=== PATIENT | male | born 1950 | race Hispanic/Latino ===

== ENCOUNTER 2023-12-27 13:55 | Inpatient (IN) | payer OTHER ==
[2023-12-27] MEDS ORDERED: NA CHLORIDE 0.9% 1,000 ML ONE (14:35)
--- NOTE | 2023-12-27 15:07 | ER ---
Nurse's Notes [facility] Name: Anupam Gould Age: 73 yrs Sex: Male : 1950 Arrival Date: 12/27/2023 Time: 13:55 Bed 19 Private MD: Diagnosis: Persistent atrial fibrillation-with RVR Presentation: 12/26 14:03 Chief complaint: Patient states: was going to have a colonoscopy today and they ko1 wouldn't do it, sent him here for afib, has a hx of afib for a long time. Coronavirus screen: At this time, the client does not indicate any symptoms associated with coronavirus-19. Ebola Screen: No symptoms or risks identified at this time. Initial Sepsis Screen: Does the patient meet any 2 criteria? No. Patient's initial sepsis screen is negative. Does the patient have a suspected source of infection? No. Patient's initial sepsis screen is negative. Risk Assessment: Do you want to hurt yourself or someone else? Patient reports no desire to harm self or others. Onset of symptoms was December 27, 2023. 14:03 Method Of Arrival: Ambulatory ko1 14:03 Acuity: ROSEMARIE 3 ko1 Triage Assessment: 14:07 General: Appears in no apparent distress. Behavior is calm, cooperative, appropriate ko1 for age. Pain: Denies pain. Historical: - Allergies: 14:07 No Known Allergies; ko1 - Home Meds: 14:07 Unable to obtain [Active]; ko1 - PMHx: 14:07 Atrial fibrillation; ko1 - PSHx: 14:07 None; ko1 - Immunization history:: Adult Immunizations up to date. - Infectious Disease History:: Denies. - Social history:: Smoking status: Patient denies any tobacco usage or history of. - Family history:: not pertinent. Screenin:03 [facility] ED Fall Risk Assessment (Adult) History of falling in the last 3 months, ap3 including since admission No falls in past 3 months (0 pts) Confusion or Disorientation No (0 pts) Intoxicated or Sedated No (0 pts) Impaired Gait No (0 pts) Mobility Assist Device Used No (0 pt) Altered Elimination No (0 pt) Score/Fall Risk Level 0 - 2 = Low Risk Oriented to surroundings, Maintained a safe environment, Educated pt \T\ family on fall prevention, incl call for assistance when getting out of bed, Assessed \T\ reinforced patient's understanding of fall precautions. Abuse screen: Denies threats or abuse. Denies injuries from another. Nutritional screening: No deficits noted. Tuberculosis screening: No symptoms or risk factors identified. Assessment: 15:04 General: Appears in no apparent distress. Behavior is calm, cooperative. Pain: Denies ap3 pain. Neuro: Level of Consciousness is awake, alert, obeys commands, Oriented to person, place, time, situation, [place] are equal bilaterally Moves all extremities. Full function Gait is steady, Speech is normal, Facial symmetry appears normal. Cardiovascular: Denies chest pain, lightheadedness, nausea, palpitations, shortness of breath, syncope, Capillary refill < 3 seconds Patient's skin is warm and dry. Rhythm is atrial fibrillation with rapid ventricular response With PVC's. Respiratory: Airway is patent Respiratory effort is even, unlabored, Respiratory pattern is regular, symmetrical, Breath sounds are clear bilaterally. GI: No signs and/or symptoms were reported involving the gastrointestinal system. : No signs and/or symptoms were reported regarding the genitourinary system. EENT: No signs and/or symptoms were reported regarding the EENT system. Derm: No signs and/or symptoms reported regarding the dermatologic system. Musculoskeletal: No signs and/or symptoms reported regarding the musculoskeletal system. 16:15 Reassessment: No changes from previously documented assessment. Patient and/or family ap3 updated on plan of care and expected duration. Pain level reassessed. Patient is alert, oriented x 3, equal unlabored respirations, skin warm/dry/pink. Patient denies pain at this time. 17:12 Reassessment: No changes from previously documented assessment. Patient and/or family ap3 updated on plan of care and expected duration. Pain level reassessed. Patient is alert, oriented x 3, equal unlabored respirations, skin warm/dry/pink. Pt denies any needs at this time. Family at bedside. Will continue to monitor Patient denies pain at this time. 17:42 Reassessment: No changes from previously documented assessment. Patient and/or family ap3 updated on plan of care and expected duration. Pain level reassessed. Patient is alert, oriented x 3, equal unlabored respirations, skin warm/dry/pink. Patient denies pain at this time. Vital Signs: 14:03 BP 153 / 84; Pulse 93; Resp 18; Temp 97.4(O); Pulse Ox 100% on R/A; ko1 15:03 BP 133 / 77; Pulse 142; Resp 20; Pulse Ox 98% on R/A; ap3 15:40 BP 120 / 98; Pulse 115; Resp 20; Pulse Ox 99% on R/A; Weight 78.93 kg (M); ap3 16:00 BP 133 / 99; Pulse 111; Resp 20; Pulse Ox 100% on R/A; Pain 0/10; ap3 16:30 BP 134 / 82; Pulse 102; Resp 20; Pulse Ox 100% on R/A; ap3 17:00 BP 124 / 84; Pulse 107; Resp 20; Pulse Ox 99% on R/A; ap3 17:43 BP 133 / 90; Pulse 121; Resp 19; Temp 97.9(TE); Pulse Ox 100% on R/A; Pain 0/10; ap3 16:00 Pain Scale: Adult ap3 17:43 Pain Scale: Adult ap3 Vitals: 15:03 Cardiac Rhythm Assessment Irregular Atrial fibrillation W/rapid ventricular response ap3 W/PVC's. ED Course: 14:02 Patient arrived in ED. mg5 14:07 Triage completed. ko1 14:07 Arm band placed on right wrist. Patient placed in an exam room, on a stretcher, on ko1 lunchroom monitor, on pulse oximetry, Patient notified of wait time. 14:16 Cristopher Morel MD is Attending Physician. [facility] 14:31 Jayna Quiroga, RN is Primary Nurse. ap3 14:55 XRAY Chest (1 view) In Process Unspecified. EDMS 15:03 No provider procedures requiring assistance completed. EKG done, by ED staff, reviewed ap3 by Cristopher Morel MD. 15:06 Cheikh Montoya MD is Hospitalizing Provider. pia 15:06 Patient has correct armband on for positive identification. Placed in gown. Bed in low ap3 position. Call light in reach. Side rails up X 1. Adult w/ patient. Provided Education on: ED process, call garcia. Client placed on continuous cardiac and pulse oximetry monitoring. NIBP monitoring applied. monitoring analyst on. Door closed. Noise minimized. Moved to private room. Warm blanket given. 15:15 Initial lab(s) drawn, by me, sent to lab. Urine collected: clean catch specimen, clear. [email or web address] Inserted saline lock: 20 gauge in right antecubital area, using aseptic technique. Blood collected. 17:45 Patient admitted, IV remains in place. ap3 Administered Medications: 15:25 Drug: Aspirin PO Chewable Tablet 81 mg PO once Route: PO; ap3 17:40 Follow up: Response: No adverse reaction ap3 15:26 Drug: Metoprolol PO 50 mg PO once Route: PO; ap3 17:40 Follow up: Response: No adverse reaction ap3 15:29 Drug: Metoprolol IVP 5 mg IVP once; Hold for SBP <100 or HR <60. Route: IVP; Site: ap3 right antecubital; 17:41 Follow up: Response: No adverse reaction ap3 15:30 Drug: NS 0.9% IV 500 ml IV at bolus once Route: IV; Rate: bolus; Site: right ap3 antecubital; Delivery: Primary tubing; 17:41 Follow up: Response: No adverse reaction; IV Status: Infusion continued; IV Intake: ap3 500ml 15:54 Drug: Magnesium Sulfate IVPB 1 grams IVPB once over 1 hrs Route: IVPB; Infused Over: 1 ap3 hrs; Site: right antecubital; Delivery: Primary tubing; 17:39 Follow up: Response: No adverse reaction; IV Status: Completed infusion; IV Intake: ap3 100ml 15:55 Drug: Enoxaparin Sub-Q 1 mg/kg Sub-Q once Route: Sub-Q; Site: right upper abdomen; ap3 17:41 Follow up: Response: No adverse reaction ap3 15:55 Drug: Digoxin IVP 0.5 mg IVP once Route: IVP; Site: right antecubital; ap3 17:40 Follow up: Response: No adverse reaction ap3 15:55 Drug: Famotidine IVP 20 mg IVP once; dilute with 10 mL 0.9% NaCl; give over 2 minutes ap3 Route: IVP; Infused Over: 2 mins; Site: right antecubital; 17:40 Follow up: Response: No adverse reaction ap3 Medication: 15:03 VIS not applicable for this client. ap3 Intake: 17:39 IV: 100ml; Total: 100ml. ap3 17:41 IV: 500ml; Total: 600ml. ap3 Outcome: 15:07 Decision to Hospitalize by Provider. pia 18:35 Admitted to Med/surg accompanied by tech, via wheelchair, tl4 18:35 Condition: stable 18:35 Instructed on the need for admit, 18:35 Patient left the ED. tl4 Signatures: Dispatcher [employer] EDCristopher Matute MD MD cha Prokisch, Amanda RN RN ap3 Colette Sparrow RN RN ko1 Kristina Strange mg5 Michael Bradford RN RN tl4 Raghav Mcgraw [email or web address]
--- NOTE | 2023-12-27 15:07 | EDPHYS ---
Physician Documentation [facility] Name: Anupam Gould Age: 73 yrs Sex: Male : 1950 Arrival Date: 12/27/2023 Time: 13:55 Bed 19 Private MD: ED Physician Cristopher Morel HPI: 12/26 14:52 This 73 yrs old Male presents to ER via Ambulatory with complaints of pia Palpitations. 14:52 The patient presents with a history of irregular heart beat. Context: The symptoms pia occur with light activity. Onset: The symptoms/episode began/occurred just prior to arrival. Duration: The patient or guardian reports multiple episodes, that wax and wane. Modifying factors: The symptoms are aggravated by nothing. The symptoms are alleviated by nothing. Associated signs and symptoms: The patient has no apparent associated signs or symptoms. Severity of symptoms: At their worst the symptoms were mild in the emergency department the symptoms are unchanged. The patient has experienced similar episodes in the past, multiple times. Historical: - Allergies: 14:07 No Known Allergies; ko1 - Home Meds: 14:07 Unable to obtain [Active]; ko1 - PMHx: 14:07 Atrial fibrillation; ko1 - PSHx: 14:07 None; ko1 - Immunization history:: Adult Immunizations up to date. - Infectious Disease History:: Denies. - Social history:: Smoking status: Patient denies any tobacco usage or history of. - Family history:: not pertinent. ROS: 14:56 Constitutional: Negative for fever, chills, and weight loss, Eyes: Negative for injury, pia pain, redness, and discharge, ENT: Negative for injury, pain, and discharge, Neck: Negative for injury, pain, and swelling, Respiratory: Negative for shortness of breath, cough, wheezing, and pleuritic chest pain, Abdomen/GI: Negative for abdominal pain, nausea, vomiting, diarrhea, and constipation, Back: Negative for injury and pain, : Negative for injury, bleeding, discharge, and swelling, MS/Extremity: Negative for injury and deformity, Skin: Negative for injury, rash, and discoloration, Neuro: Negative for headache, weakness, numbness, tingling, and seizure, Psych: Negative for depression, anxiety, suicide ideation, homicidal ideation, and hallucinations, Allergy/Immunology: Negative for hives, rash, and allergies, Endocrine: Negative for neck swelling, polydipsia, polyuria, polyphagia, and marked weight changes, 14:56 Cardiovascular: Positive for palpitations, Exam: 14:56 Constitutional: This is a well developed, well nourished patient who is awake, alert, pia and in no acute distress. Head/Face: Normocephalic, atraumatic. Eyes: Pupils equal round and reactive to light, extra-ocular motions intact. Lids and lashes normal. Conjunctiva and sclera are non-icteric and not injected. Cornea within normal limits. Periorbital areas with no swelling, redness, or edema. ENT: Nares patent. No nasal discharge, no septal abnormalities noted. Tympanic membranes are normal and external auditory canals are clear. Oropharynx with no redness, swelling, or masses, exudates, or evidence of obstruction, uvula midline. Mucous membranes moist. Neck: Trachea midline, no thyromegaly or masses palpated, and no cervical lymphadenopathy. Supple, full range of motion without nuchal rigidity, or vertebral point tenderness. No Meningismus. Chest/axilla: Normal chest wall appearance and motion. Nontender with no deformity. No lesions are appreciated. Cardiovascular: Regular rate and rhythm with a normal S1 and S2. No gallops, murmurs, or rubs. Normal PMI, no JVD. No pulse deficits. Respiratory: Lungs have equal breath sounds bilaterally, clear to auscultation and percussion. No rales, rhonchi or wheezes noted. No increased work of breathing, no retractions or nasal flaring. Abdomen/GI: Soft, non-tender, with normal bowel sounds. No distension or tympany. No guarding or rebound. No evidence of tenderness throughout. Back: No spinal tenderness. No costovertebral tenderness. Full range of motion. Male : Normal genitalia with no discharge or lesions. Skin: Warm, dry with normal turgor. Normal color with no rashes, no lesions, and no evidence of cellulitis. MS/ Extremity: Pulses equal, no cyanosis. Neurovascular intact. Full, normal range of motion. Neuro: Awake and alert, GCS 15, oriented to person, place, time, and situation. Cranial nerves II-XII grossly intact. Motor strength 5/5 in all extremities. Sensory grossly intact. Cerebellar exam normal. Normal gait. Psych: Awake, alert, with orientation to person, place and time. Behavior, mood, and affect are within normal limits. 15:09 ECG was reviewed by the Attending Physician. [facility] Vital Signs: 14:03 BP 153 / 84; Pulse 93; Resp 18; Temp 97.4(O); Pulse Ox 100% on R/A; ko1 15:03 BP 133 / 77; Pulse 142; Resp 20; Pulse Ox 98% on R/A; ap3 15:40 BP 120 / 98; Pulse 115; Resp 20; Pulse Ox 99% on R/A; Weight 78.93 kg (M); ap3 16:00 BP 133 / 99; Pulse 111; Resp 20; Pulse Ox 100% on R/A; Pain 0/10; ap3 16:30 BP 134 / 82; Pulse 102; Resp 20; Pulse Ox 100% on R/A; ap3 17:00 BP 124 / 84; Pulse 107; Resp 20; Pulse Ox 99% on R/A; ap3 17:43 BP 133 / 90; Pulse 121; Resp 19; Temp 97.9(TE); Pulse Ox 100% on R/A; Pain 0/10; ap3 16:00 Pain Scale: Adult ap3 17:43 Pain Scale: Adult ap3 MDM: 14:16 Patient medically screened. pia 14:56 MICKY Risk Score: 1 - Patient's age is greater or equal to 65, 1 - 3 or more CAD risk pia factors, [Family HX] Total Score = 2. Differential diagnosis: arrythmia, dehydration, stress disorder. Data reviewed: vital signs, nurses notes, lab test result(s), EKG, radiologic studies, plain films. Consideration of Admission/Observation Escalation of care including admission/observation considered. I considered the following discharge prescriptions or medication management in the emergency department Medications were administered in the Emergency Department. See MAR. Independent interpretation of the following test(s) in the Emergency Department EKG: See my EKG interpretation above. Test considered but Not performed: Ultrasound no 2 d echo. 12/26 14:18 Order name: Basic Metabolic Panel; Complete Time: 15:49 [facility] 12/26 14:18 Order name: CBC with Diff; Complete Time: 15:46 [facility] 12/26 14:18 Order name: LFT's; Complete Time: 15:49 12/26 14:18 Order name: Magnesium; Complete Time: 15:49 12/26 14:18 Order name: NT PRO-BNP; Complete Time: 15:49 12/26 14:18 Order name: PT-INR; Complete Time: 15:46 12/26 14:18 Order name: Troponin HS; Complete Time: 15:49 12/26 14:18 Order name: TSH; Complete Time: 15:49 12/26 14:18 Order name: Urinalysis w/ reflexes; Complete Time: 15:46 12/26 14:18 Order name: Lipase; Complete Time: 15:49 12/26 17:02 Order name: Thyroid Stimulating Hormone [facility] 12/26 17:02 Order name: Urinalysis w/ reflexes [facility] 12/26 17:02 Order name: CBC with Automated Diff [facility] 12/26 17:02 Order name: CBC with Automated Diff [facility] 12/26 17:02 Order name: Comprehensive Metabolic Panel [facility] 12/26 17:02 Order name: Comprehensive Metabolic Panel [facility] 12/26 17:02 Order name: Lipid Profile [facility] 12/26 17:02 Order name: Lipid Profile [facility] 12/26 17:02 Order name: Magnesium [facility] 12/26 17:02 Order name: Magnesium [facility] 12/26 17:02 Order name: Phosphorus [facility] 12/26 17:02 Order name: Phosphorus [facility] 12/26 17:02 Order name: Troponin High Sensitivity [facility] 12/26 17:02 Order name: Troponin High Sensitivity [facility] 12/26 17:02 Order name: Troponin High Sensitivity [facility] 12/26 14:18 Order name: XRAY Chest (1 view); Complete Time: 15:46 12/26 18:07 Order name: Echo with Doppler [facility] 12/26 14:18 Order name: EKG; Complete Time: 14:18 12/26 17:02 Order name: CONS Physician Consult [facility] 12/26 14:18 Order name: Cardiac monitoring; Complete Time: 15:02 12/26 14:18 Order name: EKG - Nurse/Tech; Complete Time: 15:02 12/26 14:18 Order name: IV Saline Lock; Complete Time: 15:15 12/26 14:18 Order name: Labs collected and sent; Complete Time: 15:15 12/26 14:18 Order name: O2 Per Protocol; Complete Time: 15:02 pia 12/26 14:18 Order name: O2 Sat Monitoring; Complete Time: 15: [facility] EC:09 Rate is 118 beats/min. Rhythm is irregularly irregular. QRS [place] is Normal. SC interval pia is normal. QRS interval is normal. QT interval is normal. No Q waves. T waves are Normal. No ST changes noted. Clinical impression: Atrial Fibrillation and No evidence of ischemia. Interpreted by me. Reviewed by me. Administered Medications: 15:25 Drug: Aspirin PO Chewable Tablet 81 mg PO once Route: PO; ap3 17:40 Follow up: Response: No adverse reaction ap3 15:26 Drug: Metoprolol PO 50 mg PO once Route: PO; ap3 17:40 Follow up: Response: No adverse reaction ap3 15:29 Drug: Metoprolol IVP 5 mg IVP once; Hold for SBP <100 or HR <60. Route: IVP; Site: ap3 right antecubital; 17:41 Follow up: Response: No adverse reaction ap3 15:30 Drug: NS 0.9% IV 500 ml IV at bolus once Route: IV; Rate: bolus; Site: right ap3 antecubital; Delivery: Primary tubing; 17:41 Follow up: Response: No adverse reaction; IV Status: Infusion continued; IV Intake: ap3 500ml 15:54 Drug: Magnesium Sulfate IVPB 1 grams IVPB once over 1 hrs Route: IVPB; Infused Over: 1 ap3 hrs; Site: right antecubital; Delivery: Primary tubing; 17:39 Follow up: Response: No adverse reaction; IV Status: Completed infusion; IV Intake: ap3 100ml 15:55 Drug: Enoxaparin Sub-Q 1 mg/kg Sub-Q once Route: Sub-Q; Site: right upper abdomen; ap3 17:41 Follow up: Response: No adverse reaction ap3 15:55 Drug: Digoxin IVP 0.5 mg IVP once Route: IVP; Site: right antecubital; ap3 17:40 Follow up: Response: No adverse reaction ap3 15:55 Drug: Famotidine IVP 20 mg IVP once; dilute with 10 mL 0.9% NaCl; give over 2 minutes ap3 Route: IVP; Infused Over: 2 mins; Site: right antecubital; 17:40 Follow up: Response: No adverse reaction ap3 Disposition Summary: 12/27/23 15:07 Hospitalization Ordered Notes: Hospitalization Status: Observation pia Provider: Cheikh Montoya cha Location: Telemetry/MedSurg (observation) pia Condition: Fair pia Problem: new pia Symptoms: have improved pia Bed/Room Type: Standard pia Room Assignment: 213(12/27/23 17:09) eb Diagnosis - Persistent atrial fibrillation - with RVR pia Discharge Instructions: - Discharge Summary Sheet pia - Palpitations pia - Aspirin and Your Heart pia - Palpitations, [id number] pia Forms: - Medication Reconciliation Form pia - SBAR form pia - Leadership Thank You Letter pia Prescriptions: - Toprol XL 25 mg Oral Tablet - take 1 tablet ORAL route once daily; 20 tablet; Refills: 0, Product Selection pia Permitted Signatures: Dispatcher [employer] Cristopher Yang MD MD cha Prokisch, Amanda RN RN ap3 Arabella Virgen Kathy RN RN ko1 Corrections: (The following items were deleted from the chart) 17:09 15:07 pia eb
[2023-12-27 15:22] LABS: Absolute Lymphocytes (CBC) 1.3 K/uL (0.7-4.9); Absolute Monocytes 0.4 K/uL (0.1-1.3); Absolute Neutrophil 5.8 K/uL (1.8-8.0); Basophils % 0.4 % (0-1.3); Eosinophils % 0.3 % (0-4.4); Hematocrit 48.9 % (39.6-49.0); Hemoglobin 16.2 g/dL (13.6-17.9); Lymphocytes % 16.6 % (15.3-44.8); MCH 31.5 pg (27.0-35.0); MCHC 33.1 g/dL (32.0-36.0); MCV 95.1 fL (80-100); MPV 7.5 fL (7.6-11.3); Monocytes % 5.5 % (3.3-12.3); Neutrophils % 77.2 % (41.7-73.7); Nucleated Red Blood Cells % 0.1 % (0-0); Platelets 254 thou/uL (152-406); RBC Red Blood Cell Count 5.14 M/uL (4.33-5.43); Red Cell Distribution Width 13.4 % (12.1-15.2)
[2023-12-27] MEDS ORDERED: ASPIRIN 81 MG CHEWABLE TABLET ONE (15:23)
[2023-12-27] MEDS ORDERED: METOPROLOL XL 50 MG TAB PO ONE (15:24)
[2023-12-27] MEDS ORDERED: FAMOTIDINE 20 MG/2 ML VIAL IV ONE (15:24)
[2023-12-27] MEDS ORDERED: METOPROLOL TARTRATE 5 MG/5 ML INJ IV ONE (15:24)
[2023-12-27] MEDS ORDERED: DIGOXIN 0.25 MG/ML AMP ONE ×2 (15:24→15:44)
[2023-12-27] MEDS ORDERED: MAGNESIUM SULFATE 1 gm IVPB 1 GM/100 ML BAG IV ONE (15:25)
[2023-12-27 15:26] LABS: Specific Gravity > 1.030 (1.005-1.030); Sqamous Epithelial None Seen /HPF (None Seen); Urine Bacteria None Seen /HPF (<20); Urine Bilirubin NEGATIVE (Negative); Urine Blood Negative (Negative); Urine Clarity Clear (Clear); Urine Color Yellow (Yellow); Urine Culture Reflex Order NOT NEEDED; Urine Glucose NEGATIVE (Negative); Urine Ketones 4+ (Negative); Urine Microscopic Reflex YN ORDER UMIC; Urine Mucus Slight /HPF (None Seen); Urine Nitrite NEGATIVE (Negative); Urine Protein TRACE (Negative); Urine RBC <5 /HPF (None Seen); Urine Urobilinogen Normal (Normal); Urine WBC <5 /HPF (<5); Urine pH 5.5 (5.0-7.0)
--- NOTE | 2023-12-27 15:30 | RAD REPORT ---
EXAM DESCRIPTION: Javi Single View12/27/2023 2:55 pm CLINICAL HISTORY: Palpitations COMPARISON: none FINDINGS: The lungs appear clear of acute infiltrate. The heart is normal size IMPRESSION: No acute abnormalities displayed
[2023-12-27 15:43] LABS: PT Prothrombin Time 13.4 SECONDS (9.5-12.5); Protime INR 1.23
[2023-12-27] MEDS ORDERED: ENOXAPARIN 80 MG/0.8 ML SQ ONE (15:44)
[2023-12-27 15:48] LABS: Albumin 4.2 g/dL (3.4-5.0); Albumin/Globulin Ratio 1.1 (1.1-1.8); Bilirubin Direct 0.5 mg/dL (0-0.2); Bilirubin Indirect, Calculated 1.6 mg/dL (0.2-0.8); Bilirubin Total 2.1 mg/dL (0.2-1.0); Magnesium 2.3 mg/dL (1.6-2.4); Protein, Total 8.2 g/dL (6.4-8.2); Thyroid Stimulating Hormone 1.57 uIU/mL (0.358-3.740)
--- NOTE | 2023-12-27 16:03 | P.HP ---
Certification for Inpatient Patient admitted to: Inpatient With expected LOS: >2 Midnights Patient will require the following post-hospital care: None Practitioner: I am a practitioner with admitting privileges, knowledge of patient current condition, hospital course, and medical plan of care. Services: Services provided to patient in accordance with Admission requirements found in Title 42 Section 412.3 of the Code of Federal Regulations <Sonia Gonzales - Last Filed: 12/27/23 17:02> Patient History Date of Service: 12/27/23 Reason for admission: a. fib with RVR History of Present Illness: Mr. Gould is a very healthy 73-year-old. 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 He sees Dr. Lowery in [place]. States only coagulation is aspirin. He went for a colonoscopy today with no symptoms and was told that they would not do the colonoscopy and he needed to go to the nearest emergency department. On arrival in the emergency department his blood pressure was 153/84, heart rate 93, respiratory rate 18, temp 97.4, pulse ox 100% on room air. The patient states he has no pain and feels no palpitations. EKG evaluation in the emergency department was a ventricular rate of 118 with atrial fibrillation with premature ventricular aberrantly conducted complexes. He was given 81 mg aspirin p.o., metoprolol 50 mg p.o., metoprolol 5 mg IV, 500 mL normal saline bolus, and 1 dose of digoxin. Laboratory evaluation shows a normal CBC, normal Chem-7, mildly elevated T. bili at 2.1, direct bili at 0.5, magnesium 2.3, proBNP 835, troponin 9, TSH 1.57. Chest x-ray without acute abnormalities. He will be admitted for rate control and evaluation. Home medications list reviewed: Yes - Past Medical/Surgical History Has patient received pneumonia vaccine in the past: No Diabetic: No -: HLD/Triglycerides Psychosocial/ Personal History: Lives at home with his . Parents and siblings remarkably healthy. 1 younger brother secondary to cancer - Family History Family History: Reviewed- Non-Contributory - Social History Smoking Status: Never smoker Smoking therapy provided: No Patient receptive to therapy: No Alcohol use: Yes CD- Drugs: No Caffeine use: Yes Place of Residence: Home <Sonia Gonzales - Last Filed: 12/27/23 17:02> Date of Service: 12/27/23 <Cheikh Montoya - Last Filed: 12/27/23 18:04> Allergies No Known Allergies Allergy (Unverified 12/27/23 17:01) Review of Systems 10-point ROS is otherwise unremarkable Cardiovascular: As per HPI <Sonia Gonzaleslen - Last Filed: 12/27/23 17:02> Physical Examination - Physical Exam General: Alert, In no apparent distress, Oriented x3 HEENT: Atraumatic, Normocephalic Neck: Supple Respiratory: Clear to auscultation bilaterally, Normal air movement Cardiovascular: Irregular heart rate/rhythm Capillary refill: <2 Seconds Gastrointestinal: Soft and benign Musculoskeletal: No clubbing, No swelling Integumentary: No rashes Neurological: Normal speech, Normal tone, Normal affect Lymphatics: No axilla or inguinal lymphadenopathy External genitalia: Deferred Rectal: Deferred - Studies Laboratory Data (last 24 hrs) 12/27/23 12/27/23 12/27/23 15:11 15:11 15:11 WBC 7.50 Hgb 16.2 Hct 48.9 Plt Count 254 PT 13.4 H INR 1.23 Sodium 135 L Potassium 4.0 BUN 19 H Creatinine 1.13 Glucose 84 Magnesium 2.3 Total Bilirubin 2.1 H AST 19 ALT 30 Alkaline Phosphatase 68 Lipase 40 <Sonia Gonzaleslen - Last Filed: 12/27/23 17:02> - Studies Laboratory Data (last 24 hrs) 12/27/23 12/27/23 12/27/23 15:11 15:11 15:11 WBC 7.50 Hgb 16.2 Hct 48.9 Plt Count 254 PT 13.4 H INR 1.23 Sodium 135 L Potassium 4.0 BUN 19 H Creatinine 1.13 Glucose 84 Magnesium 2.3 Total Bilirubin 2.1 H AST 19 ALT 30 Alkaline Phosphatase 68 Lipase 40 <Cheikh Montoya - Last Filed: 12/27/23 18:04> Assessment and Plan - Plan Subjective: pt states he has no s/s. Equivical history of atrial fibrillation. States only aspirin for anticoagulation Plan: telemetry Continue medications for rate control Anticoagulation Cardiology consultation GI and DVT prophylaxis - Advance Directives Does patient have a Living Will: No Does patient have a Durable POA for Healthcare: No - Code Status/Comfort Care Code Status Assessed: Yes (Full) <Sonia Gonzales Ritchie - Last Filed: 12/27/23 17:02> - Plan Pt seen and examined. I agree with the note by the MONOMER PURIFICATION OPERATOR. Pt is a 73 yo male with past medical history of A. fib who was sent to the ER for further evaluation of A. fib with RVR. Of note pt came to the same day procedure for colonoscopy but they canceled the colonoscopy because of A. fib with RVR and sent him to the Er for evaluation. Pt reports that he used to take an unknown medicine for A. fib but e continued to have elevated heart rate. His PCP told him to stop it and continue only aspirin. On admission, EKG shows A. fib with RVR ( HR in 150s). Lab studies how wbc 7.5, hgb 16.2, Na 135, K 4.0, Cr 1.13, BNP 835 and troponin 9. At bedside, pt is in NAD. A/P: A.Fib with RVR: Will continue telemetry, diltiazem drip and therapeutic lovenox. Consulted Cardiology Elevated BNP: Will f/u Echo. Pt is not fluid overloaded DVT ppx: lovenox Code: full <Cheikh Montoya - Last Filed: 12/27/23 18:04>
[2023-12-27] MEDS ORDERED: SODIUM CHLORIDE 0.9% 10ML INJ IV PRN (17:06)
[2023-12-27] MEDS: ATORVASTATIN 40 MG TAB PO SCH (21:23)
[2023-12-27] MEDS: ENOXAPARIN 80 MG/0.8 ML SQ SCH (21:23)
[2023-12-27] MEDS ORDERED: dilTIAZem HCL 25 MG/5 ML VIAL IV ONE (22:05)
[2023-12-27 22:13] VITALS: BMI 25.0
[2023-12-27] MEDS: NA CHLORIDE 0.9% 100 ML ONE (22:51)
[2023-12-27] MEDS: dilTIAZem HCL 25 MG/5 ML VIAL IV ONE (22:51)
[2023-12-27] MEDS: DILTIAZEM INJ 125 MG/25 ML 125 MG in NA CHLORIDE 0.9% 100 ML IV SCH (23:00)
[2023-12-28 04:53] LABS: Absolute Eosinophils 0.1 K/uL (0-0.5); Absolute Lymphocytes (CBC) 2.2 K/uL (0.7-4.9); Absolute Monocytes 0.7 K/uL (0.1-1.3); Absolute Neutrophil 2.7 K/uL (1.8-8.0); Basophils % 0.7 % (0-1.3); Eosinophils % 1.4 % (0-4.4); Hematocrit 46.4 % (39.6-49.0); Hemoglobin 15.4 g/dL (13.6-17.9); Lymphocytes % 37.9 % (15.3-44.8); MCH 31.6 pg (27.0-35.0); MCHC 33.1 g/dL (32.0-36.0); MCV 95.4 fL (80-100); MPV 7.8 fL (7.6-11.3); Monocytes % 11.6 % (3.3-12.3); Neutrophils % 48.4 % (41.7-73.7); Nucleated Red Blood Cells % 0.1 % (0-0); Platelets 244 thou/uL (152-406); RBC Red Blood Cell Count 4.86 M/uL (4.33-5.43); Red Cell Distribution Width 13.6 % (12.1-15.2)
[2023-12-28 05:19] LABS: Albumin 3.6 g/dL (3.4-5.0); Albumin/Globulin Ratio 1.1 (1.1-1.8); Anion Gap 9.6 mEq/L (5.0-15.0); Bilirubin Total 1.4 mg/dL (0.2-1.0); Globulin 3.4 g/dL (2.3-3.5); Magnesium 2.5 mg/dL (1.6-2.4); Phosphorus 3.5 mg/dL (2.5-4.9); Potassium 4.6 mEq/L (3.5-5.1); Troponin High Sensitivity 11.8 pg/mL (<58.9)
[2023-12-28] MEDS: ASPIRIN EC 81 MG TAB PO SCH (08:07)
[2023-12-28] MEDS: DOCOSAHEXANOIC AC/EPA 1000 MG PO SCH (08:07)
[2023-12-28] MEDS: PANTOPRAZOLE 40 MG INJ IVP SCH (08:07)
[2023-12-28] MEDS: METOPROLOL XL 25 MG TAB PO SCH (08:42)
--- NOTE | 2023-12-28 09:48 | P.PN ---
Subjective Date of Service: 12/28/23 Chief Complaint: a. fib with RVR Subjective: No new changes (Patient states no events overnight, denies palpitations, denies chest pain, denies shortness of breath, denies dizziness) <Sonia Gonzaleslen - Last Filed: 12/28/23 09:48> Date of Service: 12/28/23 <Cheikh Montoya - Last Filed: 12/28/23 10:03> Review of Systems 10-point ROS is otherwise unremarkable Cardiovascular: As per HPI <Sonia Gonzaleslen - Last Filed: 12/28/23 09:48> Physical Examination - Vital Signs Temperature: 98.2 F Blood Pressure: 114/90 Pulse: 108 Respirations: 19 Pulse Ox (%): 98 - Physical Exam General: Alert, In no apparent distress, Oriented x3 HEENT: Atraumatic, Normocephalic Neck: Supple Respiratory: Normal air movement Cardiovascular: Irregular heart rate/rhythm (Rate between 85 and 115, some couplets noted, frequent PVCs) Capillary refill: <2 Seconds Gastrointestinal: Normal bowel sounds, Soft and benign Musculoskeletal: No clubbing, No swelling Integumentary: No rashes Neurological: Normal speech Lymphatics: No axilla or inguinal lymphadenopathy External genitalia: Deferred Rectal: Deferred - Studies Laboratory Data (last 24 hrs) 12/27/23 12/27/23 12/27/23 15:11 15:11 15:11 WBC 7.50 Hgb 16.2 Hct 48.9 Plt Count 254 PT 13.4 H INR 1.23 Sodium 135 L Potassium 4.0 BUN 19 H Creatinine 1.13 Glucose 84 Magnesium 2.3 Total Bilirubin 2.1 H AST 19 ALT 30 Alkaline Phosphatase 68 Lipase 40 <Jazmyn Gonzalesy Ritchie - Last Filed: 12/28/23 09:48> - Studies Laboratory Data (last 24 hrs) 12/27/23 12/27/23 12/27/23 15:11 15:11 15:11 WBC 7.50 Hgb 16.2 Hct 48.9 Plt Count 254 PT 13.4 H INR 1.23 Sodium 135 L Potassium 4.0 BUN 19 H Creatinine 1.13 Glucose 84 Magnesium 2.3 Total Bilirubin 2.1 H AST 19 ALT 30 Alkaline Phosphatase 68 Lipase 40 <Cheikh Montoya - Last Filed: 12/28/23 10:03> Assessment And Plan - Plan Subjective: pt states he has no s/s. Equivical history of atrial fibrillation. States only aspirin for anticoagulation Plan: telemetry Continue medications for rate control Cardizem drip 12/28/2023 discontinued Metoprolol 25 p.o. daily Anticoagulation Cardiology consultation GI and DVT prophylaxis - Code Status/Comfort Care Code Status Assessed: Yes (Full) <Sonia Gonzales - Last Filed: 12/28/23 09:48> - Plan Pt seen and examined. I agree with the note by the RENAL NURSE. Off diltiazem drip. Will continue telemetry, metoprolol XL 25mg po daily and aspirin. Waiting for cardiology eval. <Cheikh Montoya - Last Filed: 12/28/23 10:03>
--- NOTE | 2023-12-28 10:43 | P.PN ---
Date of Service: 12/28/[address] Lyon, Sotalol 80mg po BID (1st dose now), EKG post third dose. <Sonia Gonzales - Last Filed: 12/28/23 10:42> Pt seen and examined. I agree with note by the PRECIPITATOR OPERATOR. Continue sotalol and monitor QTc. <Cheikh Montoya - Last Filed: 12/29/23 21:18>
--- NOTE | 2023-12-28 11:07 | P.CNS ---
Date of Consult: 12/28/23 Chief Complaint: a. fib with RVR History of Present Illness: Patient with no significant PMH presented from dentist office as he was found to be in AF w RVR, patient denies any cardiac symptoms, no chest pain, no palpitations, no dizzy spells, no syncope. Allergies No Known Allergies Allergy (Verified 12/27/23 21:46) Home Medications: Aspirin [Aspirin EC 81 MG] 81 mg PO DAILY 12/27/23 - Past Medical/Surgical History Diabetic: No -: HLD/Triglycerides -: afib Psychosocial/ Personal History: Lives at home with his . Parents and siblings remarkably healthy. 1 younger brother secondary to cancer - Family History Brother Medical History: Heart disease, Cancer - Social History Alcohol use: Yes CD- Drugs: No Caffeine use: Yes Place of Residence: Home Physical Examination Temp Pulse Resp BP Pulse Ox 98.2 F 93 H 12 116/67 96 12/28/23 09:48 12/28/23 10:00 12/28/23 10:00 12/28/23 10:00 12/28/23 10:00 General: Alert, In no apparent distress HEENT: Atraumatic, PERRLA, Mucous membr. moist/pink, EOMI, Sclerae nonicteric Neck: Supple, 2+ carotid pulse no bruit, No LAD, Without JVD or thyroid abnormality Respiratory: Clear to auscultation bilaterally, Normal air movement Cardiovascular: Normal S1 S2, Irregular heart rate/rhythm Gastrointestinal: Normal bowel sounds, No tenderness Musculoskeletal: No tenderness Integumentary: No rashes Neurological: Normal gait, Normal speech, Normal tone, Normal affect Lymphatics: No axilla or inguinal lymphadenopathy Laboratory Data (last 24 hrs) 12/27/23 12/27/23 12/27/23 15:11 15:11 15:11 WBC 7.50 Hgb 16.2 Hct 48.9 Plt Count 254 PT 13.4 H INR 1.23 Sodium 135 L Potassium 4.0 BUN 19 H Creatinine 1.13 Glucose 84 Magnesium 2.3 Total Bilirubin 2.1 H AST 19 ALT 30 Alkaline Phosphatase 68 Lipase 40 - Problems (1) Atrial fibrillation Current Visit: Yes Status: Acute Plan: start patient on Sotalol 80 mg po BID (First dose now) repeat EKG after 3rd dose. Continue lovenox for now Patient CHADS2 Vasc socre is 1 so can be discharged on ASA 81 mg daily. (2) PVC (premature ventricular contraction) Current Visit: Yes Status: Acute Plan: as above, patient mention that he had a coronary angiogram done 4 years ago and did not need any stents, advised that outpatient stress test with his manager corporate strategy is advised.
[2023-12-28] MEDS: SOTALOL HCL 80 MG TAB PO SCH (11:12)
[2023-12-28] MEDS ORDERED: SOTALOL HCL 80 MG TAB PO SCH (18:00)
[2023-12-29 05:26] LABS: Absolute Eosinophils 0.1 K/uL (0-0.5); Absolute Lymphocytes (CBC) 1.9 K/uL (0.7-4.9); Absolute Monocytes 0.7 K/uL (0.1-1.3); Absolute Neutrophil 3.3 K/uL (1.8-8.0); Basophils % 0.7 % (0-1.3); Eosinophils % 1.5 % (0-4.4); Hematocrit 46.7 % (39.6-49.0); Hemoglobin 15.7 g/dL (13.6-17.9); Lymphocytes % 31.6 % (15.3-44.8); MCH 32.2 pg (27.0-35.0); MCHC 33.7 g/dL (32.0-36.0); MCV 95.5 fL (80-100); MPV 7.7 fL (7.6-11.3); Monocytes % 10.9 % (3.3-12.3); Neutrophils % 55.3 % (41.7-73.7); Nucleated Red Blood Cells % 0.1 % (0-0); Platelets 231 thou/uL (152-406); RBC Red Blood Cell Count 4.89 M/uL (4.33-5.43); Red Cell Distribution Width 13.5 % (12.1-15.2)
[2023-12-29 05:48] LABS: Albumin 3.6 g/dL (3.4-5.0); Anion Gap 6.6 mEq/L (5.0-15.0); Bilirubin Total 1.2 mg/dL (0.2-1.0); Globulin 3.7 g/dL (2.3-3.5); Magnesium 2.2 mg/dL (1.6-2.4); Potassium 4.6 mEq/L (3.5-5.1); Protein, Total 7.3 g/dL (6.4-8.2)
--- NOTE | 2023-12-29 07:41 | P.PN ---
Subjective Date of Service: 12/29/23 Chief Complaint: a. fib with RVR Subjective: No C/O voiced (Pt still unable to feel irregular heartrate but is having runs of VT (6 beats was longest overnight). On assessment, pt resting in no distress, frequent PVCs noted) <Sonia Gonzaleslen - Last Filed: 12/29/23 07:38> Date of Service: 12/29/23 <Cheikh Montoya C - Last Filed: 12/29/23 10:51> Review of Systems 10-point ROS is otherwise unremarkable <Sonia Gonzaleslen - Last Filed: 12/29/23 07:38> Physical Examination - Vital Signs Temperature: 97.6 F Blood Pressure: 122/73 Pulse: 84 Respirations: 15 Pulse Ox (%): 96 - Physical Exam General: In no apparent distress, Oriented x3 HEENT: Atraumatic, Normocephalic Neck: Supple Respiratory: Normal air movement Cardiovascular: No edema, Irregular heart rate/rhythm (run of VT) Capillary refill: <2 Seconds Gastrointestinal: Soft and benign Musculoskeletal: No clubbing Integumentary: No rashes Neurological: Normal speech, Normal tone, Normal affect Lymphatics: No axilla or inguinal lymphadenopathy External genitalia: Deferred Rectal: Deferred <Sonia Gonzaleslen - Last Filed: 12/29/23 07:38> Assessment And Plan - Plan Subjective: pt states he has no s/s. Equivical history of atrial fibrillation. States only aspirin for anticoagulation Plan: telemetry Continue medications for rate control Cardizem drip 12/28/2023 discontinued 12/28/2023 Discontinued Metoprolol 25 p.o. daily 12/29/23 third dose of Sotalol at 0600. Awaiting repeat EKG. frequent ectopy noted. Anticoagulation Dr. Lyon following GI and DVT prophylaxis <Jazmyn Gonzalesy Ritchie - Last Filed: 12/29/23 07:38> - Plan Pt seen and examined. I agree with the note by the STRAND BUNCHER FINE WIRE. Will continue sotalol 80mg po BID. Will receive the 3rd dose this evening. Will check EKG to monitor QTc. Off cardizem drip. Cardiology is following. Pt is eager to go home. <Cheikh Montoya C - Last Filed: 12/29/23 10:51>
[2023-12-29] MEDS: METOPROLOL TAR 25 MG TAB PO SCH (11:24)
--- NOTE | 2023-12-29 12:56 | P.PN ---
Subjective Date of Service: 12/29/23 Chief Complaint: a. fib with RVR Subjective: No new changes, No C/O voiced, Tolerating diet, Ambulating, Improving Review of Systems 10-point ROS is otherwise unremarkable Physical Examination - Vital Signs Temperature: 97.6 F Blood Pressure: 125/82 Pulse: 109 Respirations: 15 Pulse Ox (%): 96 - Physical Exam General: Alert, In no apparent distress HEENT: Atraumatic, PERRLA, EOMI Neck: Supple, JVD not distended Respiratory: Clear to auscultation bilaterally, Normal air movement Cardiovascular: Irregular heart rate/rhythm Gastrointestinal: Normal bowel sounds, No tenderness Musculoskeletal: No tenderness Integumentary: No rashes Neurological: Normal speech, Normal tone, Normal affect Lymphatics: No axilla or inguinal lymphadenopathy - Studies Medications List Reviewed: Yes Assessment And Plan - Current Problems (Diagnosis) (1) Atrial fibrillation Current Visit: Yes Status: Acute Plan: started patient on Sotalol but patient starting having more PVCs and short runs of NSVT, repeated EKG shows prolonged QTc. D/C Sotalol start Lopressor 25 mg po BID if still in RVR by saturday then plan RIKY DCCV Continue lovenox for now Patient CHADS2 Vasc socre is 1 so can be discharged on ASA 81 mg daily. explained to patient and family in details and agree with plan (2) PVC (premature ventricular contraction) Current Visit: Yes Status: Acute Plan: as above, patient mention that he had a coronary angiogram done 4 years ago and did not need any stents, advised that outpatient stress test with his ventilating engineer is advised.
[2023-12-30 04:42] LABS: Absolute Basophils 0.1 K/uL (0-0.5); Absolute Eosinophils 0.1 K/uL (0-0.5); Absolute Lymphocytes (CBC) 2.3 K/uL (0.7-4.9); Absolute Monocytes 0.6 K/uL (0.1-1.3); Absolute Neutrophil 2.8 K/uL (1.8-8.0); Basophils % 0.9 % (0-1.3); Hematocrit 46.2 % (39.6-49.0); Hemoglobin 15.8 g/dL (13.6-17.9); Lymphocytes % 38.6 % (15.3-44.8); MCH 32.4 pg (27.0-35.0); MCHC 34.3 g/dL (32.0-36.0); MCV 94.6 fL (80-100); MPV 7.8 fL (7.6-11.3); Monocytes % 10.3 % (3.3-12.3); Neutrophils % 48.2 % (41.7-73.7); Nucleated Red Blood Cells % 0.1 % (0-0); Platelets 230 thou/uL (152-406); RBC Red Blood Cell Count 4.88 M/uL (4.33-5.43); Red Cell Distribution Width 13.4 % (12.1-15.2)
[2023-12-30 04:59] LABS: Anion Gap 8.1 mEq/L (5.0-15.0); Magnesium 2.3 mg/dL (1.6-2.4); Phosphorus 3.7 mg/dL (2.5-4.9); Potassium 5.1 mEq/L (3.5-5.1)
--- NOTE | 2023-12-30 12:39 | P.PN ---
Subjective Date of Service: 12/30/23 Chief Complaint: a. fib with RVR Subjective: No new changes (still in AF), No C/O voiced, Tolerating diet, Ambulating, Improving Review of Systems 10-point ROS is otherwise unremarkable Physical Examination - Vital Signs Temperature: 97.9 F Blood Pressure: 127/90 Pulse: 110 Respirations: 21 Pulse Ox (%): 93 - Physical Exam General: Alert, In no apparent distress HEENT: Atraumatic, PERRLA, EOMI Neck: Supple, JVD not distended Respiratory: Clear to auscultation bilaterally, Normal air movement Cardiovascular: Irregular heart rate/rhythm Gastrointestinal: Normal bowel sounds, No tenderness Musculoskeletal: No tenderness Integumentary: No rashes Neurological: Normal speech, Normal tone, Normal affect Lymphatics: No axilla or inguinal lymphadenopathy - Studies Medications List Reviewed: Yes Assessment And Plan - Current Problems (Diagnosis) (1) Atrial fibrillation Current Visit: Yes Status: Acute Plan: started patient on Sotalol but patient starting having more PVCs and short runs of NSVT, repeated EKG shows prolonged QTc. D/C Sotalol increase Lopressor to 50 mg po BID if still in RVR by saturday then plan RIKY DCCV (keep NPO after midnight) Continue lovenox for now Patient CHADS2 Vasc socre is 1 but if DCCV done then will start Eliquis 5 mg po BID for 3 months then back to ASA 81 mg daily explained to patient and family in details and agree with plan (2) PVC (premature ventricular contraction) Current Visit: Yes Status: Acute Plan: as above, patient mention that he had a coronary angiogram done 4 years ago and did not need any stents, a Will get Nuclear stress test in am (Lexiscan)
[2023-12-30] MEDS: METOPROLOL TAR 50 MG TAB PO SCH (20:38)
[2023-12-31 05:01] LABS: Absolute Basophils 0.1 K/uL (0-0.5); Absolute Eosinophils 0.1 K/uL (0-0.5); Absolute Lymphocytes (CBC) 2.4 K/uL (0.7-4.9); Absolute Monocytes 0.7 K/uL (0.1-1.3); Absolute Neutrophil 3.4 K/uL (1.8-8.0); Basophils % 0.9 % (0-1.3); Eosinophils % 1.8 % (0-4.4); Hematocrit 47.7 % (39.6-49.0); Hemoglobin 16.2 g/dL (13.6-17.9); Lymphocytes % 36.3 % (15.3-44.8); MCH 32.2 pg (27.0-35.0); MCHC 34.1 g/dL (32.0-36.0); MCV 94.4 fL (80-100); Platelets 237 thou/uL (152-406); RBC Red Blood Cell Count 5.05 M/uL (4.33-5.43); Red Cell Distribution Width 13.4 % (12.1-15.2)
[2023-12-31 05:15] LABS: Anion Gap 6.4 mEq/L (5.0-15.0); Magnesium 2.2 mg/dL (1.6-2.4); Phosphorus 4.6 mg/dL (2.5-4.9); Potassium 4.4 mEq/L (3.5-5.1)
[2023-12-31] MEDS ORDERED: REGADENOSON 0.4 MG/5 ML SYR IV ONE (08:27)
[2023-12-31] MEDS: NA CHLORIDE 0.9% 500 ML ONE (09:06)
--- NOTE | 2023-12-31 09:24 | RAD REPORT ---
EXAM DESCRIPTION: NM - Rest Stress Cardiac Imaging - 12/31/2023 9:02 am CLINICAL HISTORY: CP Chest pain. COMPARISON: Chest Single View dated 12/27/2023 TECHNIQUE: The patient was administered approximately 10.6 mCi of Tc 99m Sestamibi prior to resting SPECT imaging of the heart. The patient was then administered approximately 31.3 mCi of Tc 99m Sestam ibi following exercise or pharmacologic stress. Multiplanar SPECT images were reviewed. FINDINGS: No stress induced ischemic defect is seen to suggest stress induced ischemia. Fixed defect along the anterior wall mid to apical segments, suggesting a remote infarct or scarring. Appreciable fixed defect along the inferior wall as well, favored to represent artifact related to prominent spl anchnic uptake. The end diastolic volume is 70 ml, the end systolic volume is 39 ml, and the ejection fraction is 44 %. IMPRESSION: No scintigraphic evidence of myocardial ischemia. Fixed defect along the anterior wall mid to apical segments suggesting a remote infarct or scarring. Reduced left ventricular ejection fraction, 44%.
[2023-12-31] MEDS ORDERED: LIDOCAINE 2% MPF 5 ML VIAL ONE (09:55)
[2023-12-31] MEDS ORDERED: propofoL 200 MG/20 ML VIAL IV ONE (09:56)
--- NOTE | 2023-12-31 12:08 | P.PN ---
Subjective Date of Service: 12/31/23 Chief Complaint: a. fib with RVR Subjective: No new changes, No C/O voiced, Tolerating diet, Ambulating, Improving Review of Systems 10-point ROS is otherwise unremarkable Physical Examination - Vital Signs Temperature: 97.9 F Blood Pressure: 131/54 Pulse: 65 Respirations: 16 Pulse Ox (%): 99 - Physical Exam General: Alert, In no apparent distress HEENT: Atraumatic, PERRLA, EOMI Neck: Supple, JVD not distended Respiratory: Clear to auscultation bilaterally, Normal air movement Cardiovascular: Regular rate/rhythm, Normal S1 S2 Gastrointestinal: Normal bowel sounds, No tenderness Musculoskeletal: No tenderness Integumentary: No rashes Neurological: Normal speech, Normal tone, Normal affect Lymphatics: No axilla or inguinal lymphadenopathy - Studies Medications List Reviewed: Yes Assessment And Plan - Current Problems (Diagnosis) (1) Atrial fibrillation Current Visit: Yes Status: Acute Plan: started patient on Sotalol but patient starting having more PVCs and short runs of NSVT, repeated EKG shows prolonged QTc. so D/C Sotalol and RIKY DCCV was done this morning. continue Lopressor 50 mg po BID Patient CHADS2 Vasc socre is 1 but since patient is s/p RIKY DCCV, will start Eliquis 5 mg po BID for 3 months then back to ASA 81 mg daily explained to patient and family in details and agree with plan (2) PVC (premature ventricular contraction) Current Visit: Yes Status: Acute Plan: as above, patient mention that he had a coronary angiogram done 4 years ago and did not need any stents, a Nuclear stress test shows anterior wall scar, patient will need coronary angiogram done as outpatient, to be done with his primary blueprint duplicator.
[2023-12-31 13:46] VITALS: BP 106/72; TEMP 98.2; O2SAT 97
--- NOTE | 2023-12-31 13:48 | TEE ---
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 NORMAL LEFT ATRIAL APPENDAGE, NO THROMBUS SEEN 2. MILD MITRAL REGURGITATION TECHNOLOGIST: HUMBERTO PAULA
--- NOTE | 2023-12-31 13:54 | ECHO ---
HEIGHT: 5 ft 10 in WEIGHT: 174 lb 6 oz DATE OF STUDY: 12/31/[address]: Cheikh Montoya MD 2-DIMENSIONAL: YES M.MODE: YES DOPPLER: YES COLOR FLOW: YES TDS: PORTABLE: YES DEFINITY: BUBBLE STUDY: DIAGNOSIS: ELEVATED BNP CARDIAC HISTORY: CATHERIZATION: NO SURGERY: NO PROSTHETIC VALVE: NO PACEMAKER: NO MEASUREMENTS (cm) DIASTOLIC (NORMALS) SYSTOLIC (NORMALS) IVSd 1.0 (0.6-1.2) LA Diam 3.4 (1.9-4.0) LVEF 50-55% LVIDd 4.3 (3.5-5.7) LVIDs 3.4 (2.0-3.5) %FS 22% LVPWd 1.0 (0.6-1.2) Ao Diam 2.5 (2.0-3.7) 2 DIMENSIONAL ASSESSMENT: RIGHT ATRIUM: NORMAL LEFT ATRIUM: MILD DILATED RIGHT VENTRICLE: NORMAL LEFT VENTRICLE: NORMAL TRICUSPID VALVE: TRACE TRICUSPID REGURGITATION MITRAL VALVE: TRACE MITRAL REGURGITATION PULMONIC VALVE: NORMAL AORTIC VALVE: NORMAL PERICARDIAL EFFUSION: NONE AORTIC ROOT: NORMAL LEFT VENTRICULAR WALL MOTION: NORMAL DOPPLER/COLOR FLOW: NORMAL COMMENTS: 1. NORMAL LEFT VENTRICULAR SYSTOLIC FUNCTION, EJECTION FRACTION 50-55%, NORMAL WALL MOTION TECHNOLOGIST: WADE JOHNSON
--- NOTE | 2023-12-31 13:58 | TREADPHA ---
DX: ATRIAL FIBRILLATION WITH RAPID VENTRICULAR RESPONSE Date of Study: 12/31/2023 Ht: 5' 10 " Wt: 174 lb 6 oz Consulting Physician: VERONIKA MEDICATIONS: ASPIRIN, LIPITOR, LOVENOX, FISH OIL, LOPRESSOR, PROTONIX HISTORY: 73 YEAR OLD MALE WITH HISTORY OF ATRIAL FIBRILLATION WITH RAPID VENTRICULAR RESPONSE PHYSICIAL EXAMINATION: RESTING B.P.: 138/74 RESTING H.R.: 99 RESTING EKG: ATRIAL FIBRILLATION PROTOCOL: PHARMACOLOGIC EXERCISE TIME: 3:30 B.P. AT PEAK STRESS: 148/87 IMPRESSION: LEXISCAN INJECTED. CARDIOLITE INJECTED (SEE NUCLEAR MEDICINE REPORT). ATRIAL FIBRILLATION WITH RUNS OF VENTRICULAR TACHYCARDIA NOTED PRIOR TO TEST. PATIENT COMPLAINS OF SHORTNESS OF BREATH.
--- NOTE | 2023-12-31 14:27 | EKG ---
Test Date: 2023-12-27 Test Time: 14:57:46 Local Operator: TL MEASUREMENT RESULTS: Intervals: Rate: 118 [place]: QRSD: 84 QT: 280 QTc: 392 Flasher: P: [place]: QRS: 87 T: 33 INTERPRETIVE STATEMENTS: Atrial fibrillation with premature ventricular or aberrantly conducted complexes Abnormal ECG No previous ECG available for comparison Electronically Signed On 12-31-23 14:15:36 CDT by Pablo Nagy
[2023-12-31] MEDS ORDERED: APIXABAN 5 MG TABLET PO SCH (21:00)
--- NOTE | 2023-12-31 21:35 | OP ---
Date of Procedure: 12/31/2023 Surgeon: Jorge Alberto Lyon Procedure Performed: Transesophageal echocardiogram cardioversion. Indication For Procedure: Atrial fibrillation. Complications: None. Estimated Blood Loss: None. Sedation: Done by Anesthesia team. Description Of Procedure: After risks, benefits, and alternatives were explained to the patient, the patient agreed to proceed with the procedure and signed informed consent. The patient was brought b k to the OR. Time-out was performed. Sedation was administered by Anesthesia team. RIKY inserted without any difficulty. Images were obtained. Then, the RIKY probe was removed. Next, synchronized cardioversion was done with 200 joules. The patient was back in sinus rhythm. The patient tolerated procedure well. He was moved back to recovery in a stable condition. Assessment: Atrial fibrillation, status post successful cardioversion. Plan: To continue medical management. ELO Voice ID: [id number] Report ID: [id number]
== END 2023-12-31 13:15 | disposition home or self-care (01) | DRG 310 ==
LOC: ER 13:55 → 2ND 16:55 → 3RD-ICU 21:23
PROVIDERS: ADMIT Hospitalist; ATTEND Hospitalist
PROC: 5A2204Z Restoration of Cardiac Rhythm, Single (ICD-10-PCS; principal; 2023-12-31)
PROC: B24BZZ4 Ultrasonography of Heart with Aorta, Transesophageal (ICD-10-PCS; 2023-12-31)
DX: I48.19 Other persistent atrial fibrillation (principal); E78.5 Hyperlipidemia, unspecified; I49.3 Ventricular premature depolarization; I47.20 Ventricular tachycardia, unspecified; Z63.4 Disappearance and death of family member; Z79.82 Long term (current) use of aspirin; Z79.01 Long term (current) use of anticoagulants
CPT/HCPCS: 36415; 71045; 78452; 80048; 80053; 80061; 80076; 81001; 83690; 83735; 83880; 84100; 84443; 84484; 85025; 85610; 92960; 93005; 93017; 93306; 93312; 96365; 96366; 96372; 96375; 99285; A9500; C9113; J1160; J2001; J2704; J2785; J3475; J7030; J7040